=== PATIENT | female | born 1985 | race African-American/Black ===

== ENCOUNTER 2016-11-04 19:54 | Emergency (ER) | payer OTHER ==
[~2016-11-04] VITALS: Ht 160 cm; Wt 65.8 kg
[~2016-11-04 19:54] MED LIST: ALBUTEROL SULF8.5 GM INH; AMOXICILLIN500 MG ORAL; AZITHROMYCIN250 MG ORAL; IBUPROFEN600 MG ORAL; IRON55 M1 PO; NKM; PSEUDOEPHEDRINE30 MG PO; VITAMIN C500 M1 ORAL
[2016-11-04] MEDS ORDERED: AMOXICILLIN500 MG ORAL (20:43)
[2016-11-04] MEDS ORDERED: IBUPROFEN600 MG ORAL (20:45)
[2016-11-04 20:50] VITALS: BP 113/68
--- NOTE | 2016-11-05 13:32 | Emergency Room Report ---
History of Present Illness General Chief Complaint: Sore Throat Source: Patient Present Illness HPI Patient is a 30-year-old female who presented after increased sore throat. The patient gradual onset of symptoms associated with some right-sided neck pain. Patient any fever. She reported having a moderate sore throat. Patient reports having prior history of strep infections. The patient for having some difficulty swallowing. Patient denied any neck stiffness. She denied any facial pain. She had not been having a cough. She had moderate pain to her throat. Allergies: Coded Allergies: No Known Allergies (Unverified , 11/04/13) Patient History Past Medical History: see triage record Last Menstrual Period: oct 26, 2016 Now: No Reviewed Nursing Documentation: PMH: Agreed, PSxH: Agreed Nursing Documentation-PMH Past Medical History: No Stated History Hx Asthma: Yes Review of Systems All Other Systems: negative except mentioned in HPI Physical Exam Vital Signs Date Time Temp Pulse Resp B/P Pulse Ox O2 Delivery O2 Flow Rate FiO2 11/04/16 20:00 97.9 86 19 113/68 98 Room Air General Appearance: well appearing, no apparent distress, alert, GCS 15 Head: normocephalic, atraumatic ENT: hearing grossly normal, normal voice, uvula midline, pharyngeal erythema Neck: full range of motion, supple, other - lymphadenopathy right side Respiratory: no respiratory distress, speaking full sentences Genitourinary: no CVA tenderness Musculoskeletal: normal inspection, normal range of motion, no calf tenderness Neurologic: normal inspection, alert, oriented x3, normal gait Psychiatric: mood/affect normal Skin: no rash Medical Decision Making Diagnostic Impression: Primary Impression: Pharyngitis Qualified Codes: J02.0 - Streptococcal pharyngitis ER Course Patient presented for sore throat.Differential diagnosis included but was not limited to meningitis, exudative tonsillitis, retropharyngeal abscess, epiglottitis, strep pharyngitis. The patient did have some right lateral tender adenopathy consistent with a bacterial pharyngitis. The patient was given prescription for antibiotics.The patient is advised to follow up with primary care doctor in 1-2 days. Patient is advised to return if any worsening condition or if any changes in status that are concerning. Last Vital Signs Date Time Temp Pulse Resp B/P Pulse Ox O2 Delivery O2 Flow Rate FiO2 11/04/16 20:50 97.9 19 113/68 98 Room Air 2/18/17 20:00 86 Status: improved Disposition: HOME, SELF-CARE Condition: Stable Scripts Ibuprofen* (MOTRIN*) 600 Mg Tablet 600 MG ORAL Q8H Y for For Pain, #20 TAB Prov: Andrew Bailon 11/04/16 Amoxicillin* (AMOXIL*) 500 Mg Capsule 500 MG ORAL THREE TIMES A DAY, #21 CAP Prov: Andrew Bailon 11/04/16 Referrals: NOT CHOSEN [facility]/MD,REFERRING (PCP) Patient Instructions: Pharyngitis Andrew Bailon Nov 05, 2016 13:32
== END 2016-11-04 20:50 | disposition home or self-care (01) ==
LOC: EMR 20:45
DX: J02.0 Streptococcal pharyngitis (principal)
CPT/HCPCS: 99284

== ENCOUNTER 2017-09-10 08:47 | Emergency (ER) | payer OTHER ==
[~2017-09-10] VITALS: Ht 160 cm; Wt 68.0 kg
--- NOTE | 2017-09-10 09:10 | Emergency Room Report ---
History of Present Illness General Chief Complaint: Lower Extremity Injury Source: Patient Present Illness HPI Patient is a 31-year-old female presented after having increased pain to her right foot. Patient reportedly injured her right foot after falling off of a however board. She stated that she had forcibly plantarflexed the right foot. She reported having sharp pain to the mid foot area. She reports initially having been able to ambulate and having increased difficulty subsequently. She denies any numbness or tingling. She denies any ankle pain. She denies any pain other areas. She denied any loss of consciousness. Allergies: Coded Allergies: No Known Allergies (Unverified , 11/04/13) Patient History Past Medical History: see triage record Last Menstrual Period: Current Reviewed Nursing Documentation: PMH: Agreed, PSxH: Agreed Nursing Documentation-PMH Past Medical History: No History, Except For Hx Asthma: Yes Review of Systems All Other Systems: negative except mentioned in HPI Physical Exam Vital Signs Date Time Temp Pulse Resp B/P (MAP) Pulse Ox O2 Delivery O2 Flow Rate FiO2 09/10/17 08:58 98.2 93 19 170/133 100 Room Air General Appearance: well appearing, no apparent distress, alert, GCS 15 Head: normocephalic, atraumatic ENT: hearing grossly normal, normal voice Neck: full range of motion, supple Respiratory: no respiratory distress, speaking full sentences Cardiovascular #1: normal inspection Gastrointestinal: normal inspection, normal bowel sounds, non tender, soft Musculoskeletal: no calf tenderness, decreased range of mation, swelling Neurologic: normal inspection, alert, oriented x3, responsive, 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 Differential diagnoses include was was not limited to cellulitis, foreign body, fracture, plantar fasciitis, vascular insufficiency, sprain. X-ray imaging of the right foot was ordered. X-ray of the foot previous interpreted by me showed normal bony alignment without fracture. The patient noted have some soft tissue swelling. The patient was given Hal wrap and crutches. She is advised she may need MRI if pain persists. The patient is advised to outpatient orthopedic followup Labs Test 09/10/17 09:00 Urine HCG, Qualitative Negative Last Vital Signs Date Time Temp Pulse Resp B/P (MAP) Pulse Ox O2 Delivery O2 Flow Rate FiO2 09/10/17 08:58 98.2 93 19 170/133 100 Room Air Status: improved Disposition: HOME, SELF-CARE Condition: Stable Scripts Ibuprofen* (MOTRIN*) 600 Mg Tablet 600 MG ORAL Q8H Y for For Pain, #30 TAB 0 Refills Prov: Andrew Bailon 09/10/17 Andrew Bailon Sep 10, 2017 09:10
[2017-09-10] MEDS ORDERED: Acetaminophen 500mg (ES) tab ORAL ONE (09:15)
[2017-09-10] MEDS ORDERED: IBUPROFEN600 MG ORAL (10:15)
[2017-09-10 10:31] VITALS: BP 152/98
--- NOTE | 2017-09-10 10:34 | Diagnostic Imaging Report ---
Indication: Reason For Exam: PAIN Technique: Right foot, 3 views Comparison: None. Findings: The osseous structures are intact. There is no fracture or destruction. The visualized joints are normal. The soft tissues are unremarkable. Impression: Normal.
== END 2017-09-10 10:33 | disposition home or self-care (01) ==
LOC: EMR 09:10
DX: S93.601A Unspecified sprain of right foot, initial encounter (principal); J45.909 Unspecified asthma, uncomplicated; W19.XXXA Unspecified fall, initial encounter; Y92.9 Unspecified place or not applicable
CPT/HCPCS: 81025; 99283